=== PATIENT | female | born 1980 | race Caucasian/White ===

== ENCOUNTER 2019-12-17 17:11 | Emergency (ER) | payer OTHER ==
--- NOTE | 2019-12-17 17:32 | ED Physician Documentation ---
PD HPI LOWER EXT INJURY - Stated complaint Stated Complaint: GLF, RT KNEE PX - Chief complaint Chief Complaint: Ext Problem - History obtained from History obtained from: Patient - History of Present Illness PD HPI LOW EXT INJURY LOCATION: Right, Knee Type of injury: Fall, Twist Where injury occurred: Home Timing - onset: Yesterday Timing - details: Abrupt onset Pain level max: 7 Pain level now: 3 Worsened by: Moving (bending) Associated symptoms: Swelling (now better) Review of Systems Constitutional: reports: Reviewed and negative Cardiac: reports: Reviewed and negative Respiratory: reports: Reviewed and negative PD PAST MEDICAL HISTORY - Past Medical History Past Medical History: Yes Respiratory: Asthma Psych: Anxiety - Past Surgical History Past Surgical History: Yes /[employer]: section - Allergies Allergies/Adverse Reactions: Allergies Allergy/AdvReac Type Severity Reaction Status Date / Time No Known Drug Allergies Allergy Verified 12/17/19 17:15 - Social History Does the pt smoke?: No Smoking Status: Never smoker Does the pt drink ETOH?: Yes Does the pt have substance abuse?: No - Immunizations Immunizations are current?: Yes - POLST Patient has POLST: No PD ED PE NORMAL - Vitals Vital signs reviewed: Yes - General General: Alert and oriented X 3, No acute distress - Extremities Extremities: Other (No effusion, no deformity or obvious ecchymosis. Mild tenderness across the lateral joint line and pain with LCL testing but no laxity of that or any other ligament. Neg grind test) - Neuro Neuro: Alert and oriented X 3, Normal speech Results - Vitals Vitals: Vital Signs - 24 hr 12/17/19 17:15 Temperature 36.6 C Heart Rate 92 Respiratory 16 Rate Blood Pressure 149/87 H O2 Saturation 97 Oxygen O2 Source Room air - Labs Labs: Laboratory Tests 12/17/19 17:33 Ur Specific [place] >=1.030 H Urine HCG, Qual NEGATIVE - Rads (name of study) R knee 4v Radiology: EMP read contemporaneously (mild DJD, NAD) PD MEDICAL DECISION MAKING - ED course ED course: 39-year-old woman with what seems like a knee sprain, x-rays were negative. She felt like the knee immobilizer was very helpful and declined prescription pain medication. Departure - Departure Disposition: 01 Home, Self Care Clinical Impression: Sprain of right knee Qualifiers: Encounter type: initial encounter Involved ligament of knee: lateral collateral ligament Qualified Code(s): S83.421A - Sprain of lateral collateral ligament of right knee, initial encounter Condition: Good Record reviewed to determine appropriate education?: Yes Instructions: ED Sprain Knee Follow-Up: [facility] [Provider Group] Comments: If not improving in a week's time, follow-up with the orthopedic office listed on this form. Return if worsening.
[2019-12-17 17:47] LABS: HCG UR QUAL NEGATIVE
--- NOTE | 2019-12-17 18:18 | XRAY Report ---
PROCEDURE: Knee 4 View RT INDICATIONS: knee inj TECHNIQUE: 3 views of the right knee(s) were acquired. COMPARISON: None. FINDINGS: Bones: No fractures or dislocations. No suspicious bony lesions. There is moderate medial femoroti bial compartment narrowing and small tricompartmental osteophytes. Soft tissues: No joint effusion. No suspicious soft tissue calcifications. IMPRESSION: Mild degenerative change. No acute radiographic findings. If pain persists, repeat imagi ng in 5-7 days is recommended. Reviewed by: Shy Coleman MD on 12/17/2019 6:16 PM PDT Approved by: Shy Coleman MD on 12/17/2019 6:16 PM PDT Station ID: [id number]
[2019-12-17 18:30] VITALS: BP 140/80
== END 2019-12-17 18:29 | disposition home or self-care (01) ==
LOC: ED 17:11
DX: S83.421A Sprain of lateral collateral ligament of right knee, initial encounter (principal); W01.0XXA Fall on same level from slipping, tripping and stumbling without subsequent striking against object, initial encounter; Y93.G1 Activity, food preparation and clean up; Y92.009 Unspecified place in unspecified non-institutional (private) residence as the place of occurrence of the external cause; M17.11 Unilateral primary osteoarthritis, right knee
CPT/HCPCS: 81025; 99282; 99284